=== PATIENT | male | born 1965 | race Caucasian/White ===

== ENCOUNTER 2017-08-22 22:09 | Observation (INO) | payer OTHER ==
[~2017-08-22] VITALS: Ht 180.3 cm; Wt 114.0 kg
[~2017-08-22 22:09] MED LIST: BLOOD PRESSURE PO; EFFEXOR XR150 MG PO; EFFEXOR XR75 MG PO; GABAPENTIN300 MG PO; HORMONE INJECTION; HYDROCODON-ACE1 EAC9 PO; LEVEMIR100 UNIT/2 SC; METFORMIN HCL500 M1 PO; TRADJENTA5 MG PO; ZESTRIL20 MG PO; [UNRECOGNIZED DRUG - OTHER] IJ
[2017-08-22 22:31] LABS: HEMATOCRIT 41.2 % (38.0-50.0); HEMOGLOBIN 14.2 G/DL (12.5-16.6); MCHC 34.5 G/DL (30.0-36.0); MCV 84.3 FL (86-99); PLATELET COUNT 231 K/uL (156-360); RBC DIS.WIDTH-SD 39.7 % (39-53); RED BLOOD COUNT 4.89 M/uL (4.00-5.50); WHITE BLOOD COUNT 7.7 K/uL (4.1-10.2)
[2017-08-22 22:41] LABS: CHLORIDE 101 mEq/L (99-109); SODIUM 137 mEq/L (136-147)
[2017-08-22 22:42] LABS: GLUCOSE 314 mg/dL (70-99)
[2017-08-22 22:46] LABS: CREATININE 1.3 mg/dL (0.6-1.3); GFR ESTIMATE (CALCULATED) > 59 mL/min/ (58.99-99999)
[2017-08-22 22:47] LABS: UREA NITROGEN (BUN) 15 mg/dL (9-23)
[2017-08-22 22:50] LABS: D-DIMER ELISA < 150.00 ng/mLDDU (<230)
[2017-08-22 22:55] LABS: TROP-I INTERPRETATION NEGATIVE; TROPONIN-I < 0.01 ng/mL (0.0-0.30)
[2017-08-23] MEDS ORDERED: CRESTOR20 MG PO (00:05)
[2017-08-23] MEDS ORDERED: VITAMIN D32000 UNI1 PO (00:05)
[2017-08-23] MEDS ORDERED: HUMALOG100 UNIT/1 SC (00:05)
[2017-08-23 02:24] LABS: ALBUMIN 4.2 g/dL (3.2-4.8)
[2017-08-23 02:26] LABS: TOTAL PROTEIN 7.9 g/dL (6.4-8.3)
[2017-08-23 02:28] LABS: TOTAL BILIRUBIN 0.3 mg/dL (0.0-1.0)
[2017-08-23 02:29] LABS: ALKALINE PHOSPHATASE 113 IU/L (3-129)
[2017-08-23 02:32] LABS: ALT (GPT) 28 IU/L (3-49); AST (GOT) 22 IU/L (2-34); DIRECT BILIRUBIN 0.1 mg/dL (0.0-0.3)
[2017-08-23 02:33] LABS: LIPASE 47 U/L (1.0-51.0)
[2017-08-23 03:08] LABS: TROP-I INTERPRETATION NEGATIVE; TROPONIN-I < 0.01 ng/mL (0.0-0.30)
[2017-08-23 03:41] VITALS: BP 112/69
[2017-08-23 08:19] VITALS: BP 109/67
[2017-08-23 11:04] LABS: TROP-I INTERPRETATION NEGATIVE; TROPONIN-I < 0.01 ng/mL (0.0-0.30)
[2017-08-23 12:05] VITALS: BP 118/78
[2017-08-23 13:36] VITALS: BP 110/70
[2017-08-23 16:14] VITALS: BP 125/75
== END 2017-08-23 16:01 | disposition home or self-care (01) ==
LOC: EME → EDBD 22:09 → EDOF 08-23 02:09 → ENRESERV 08-23 02:09 → 4SOUTH 08-23 03:26
PROVIDERS: Emergency Medicine; Hospitalist
DX: R07.89 Other chest pain (principal); I10 Essential (primary) hypertension; E78.5 Hyperlipidemia, unspecified; E11.65 Type 2 diabetes mellitus with hyperglycemia; R60.0 Localized edema; I49.9 Cardiac arrhythmia, unspecified; K22.2 Esophageal obstruction; G89.29 Other chronic pain; M54.5 Low back pain; E66.9 Obesity, unspecified; Z68.35 Body mass index [BMI] 35.0-35.9, adult; F12.90 Cannabis use, unspecified, uncomplicated; Z82.49 Family history of ischemic heart disease and other diseases of the circulatory system; Z83.3 Family history of diabetes mellitus
CPT/HCPCS: 71045; 80048; 80076; 82948; 83690; 83880; 84443; 84484; 85027; 85379; 93005; 93970; 99281; 99285; G0378; J1650